=== PATIENT | male | born 1960 | race Caucasian/White ===

== ENCOUNTER 2022-01-13 06:58 | Inpatient (IN) | payer BC, MEDICARE, OTHER ==
[~2022-01-13] VITALS: Ht 170.2 cm; Wt 45.8 kg
[2022-01-13 07:31] LABS: BASOPHILS # (AUTO) 0.1 (0.0-0.1); BASOPHILS % 0.8 % (0.0-1.0); EOSINOPHILS # (AUTO) 0.2 (0.0-0.4); EOSINOPHILS % 1.8 % (0.0-6.0); HEMATOCRIT 27.4 % (38.2-49.6); HEMOGLOBIN 9.1 g/dL (14.0-18.0); LYMPHOCYTES # (AUTO) 0.8 (1.0-3.2); LYMPHOCYTES % 7.4 % (18.0-39.1); MEAN CORPUSCULAR HGB CONC 33.2 g/dL (31-35); MEAN CORPUSCULAR VOLUME 90.4 fL (81-99); MONOCYTES # (AUTO) 0.9 (0.2-0.8); MONOCYTES % 8.4 % (4.4-11.3); NEUTROPHILS # (AUTO) 8.9 (2.1-6.9); NEUTROPHILS % 81.1 % (38.7-80.0); PLATELET COUNT 377 x10e3/uL (140-360); RED BLOOD COUNT 3.03 x10e6/uL (4.3-5.7); RED CELL DISTRIBUTION WIDTH 12.4 % (11.7-14.4)
[2022-01-13 07:50] LABS: AMPHETAMINES SCREEN,URINE POSITIVE (NEGATIVE); PHENCYCLIDINE SCREEN,URINE NEGATIVE (NEGATIVE)
[2022-01-13 07:51] LABS: BENZODIAZEPINES SCREEN,URINE NEGATIVE (NEGATIVE)
[2022-01-13 07:52] LABS: ALANINE AMINOTRANSFERASE 7 IU/L (0-55); ALBUMIN/GLOBULIN RATIO 0.5 (0.8-2.0); ALKALINE PHOSPHATASE 79 IU/L (40-150); ANION GAP 19.9 mmol/L (8-16); BLOOD UREA NITROGEN 18 mg/dL (7-26); BUN/CREATININE RATIO 9 (6-25); CALCIUM 8.9 mg/dL (8.4-10.2); CARBON DIOXIDE 19 mmol/L (22-29); CHLORIDE 100 mmol/L (98-107); CREATINE KINASE 135 IU/L (30-200); CREATININE, SERUM 1.91 mg/dL (0.72-1.25); GLUCOSE 90 mg/dL (74-118); POTASSIUM 3.9 mmol/L (3.5-5.1); SODIUM 135 mmol/L (136-145)
[2022-01-13] MEDS ORDERED: IOPAMIDOL 370 MG/ML 100 ML INFUS..BTL INJ ONE (08:14)
[2022-01-13 08:33] LABS: CLARITY,URINE TURBID (CLEAR); COLOR,URINE YELLOW (YELLOW); KETONES,URINE NEGATIVE (NEGATIVE); LEUKOCYTE ESTERASE ,URINE SMALL (NEGATIVE); NITRITE,URINE NEGATIVE (NEGATIVE); PROTEIN,URINE DIPSTICK NEGATIVE (NEGATIVE); URINE UROBILINOGEN 0.2 mg/dL (0.2 - 1)
[2022-01-13 08:42] LABS: BACTERIA,URINE MANY /HPF; EPITHELIAL CELLS,URINE FEW /LPF; RBC,URINE >50 /HPF (0-5); WBC,URINE (MAN) >50 /HPF (0-5)
[2022-01-13 08:50] LABS: INR 0.97; PROTHROMBIN TIME 13.8 seconds (11.9-14.5)
[2022-01-13 08:51] LABS: PARTIAL THROMBOPLASTIN TIME 48.7 seconds (23.8-35.5)
[2022-01-13] MEDS ORDERED: Morphine 4mg INJECTION 4 MG/ML INJ IV PRN (09:00)
[2022-01-13] MEDS ORDERED: ONDANSETRON HCL INJ 2MG/ML 2ML 2 MG/ML VIAL IV PRN (09:00)
[2022-01-13] MEDS ORDERED: SODIUM CHLORIDE FLUSH 10 ML SYR INJ PRN (09:00)
[2022-01-13] MEDS ORDERED: ACETAMINOPHEN 325 MG TAB PO PRN (11:45)
[2022-01-13] MEDS ORDERED: LEVOTHYROXINE112 MCG PO (16:05)
[2022-01-13] MEDS ORDERED: VITAMIN C1000 MG PO (16:05)
[2022-01-13] MEDS ORDERED: BACLOFEN10 MG PO (16:05)
[2022-01-13] MEDS ORDERED: HYOSCYAMIN0.125 MG/1 PO (16:05)
[2022-01-13] MEDS ORDERED: SODIUM BIC (16:05)
[2022-01-13] MEDS ORDERED: LIOTHYRONINE SO5 MCG PO (16:05)
[2022-01-13] MEDS ORDERED: FLUCONAZOLE100 MG PO (16:05)
[2022-01-13] MEDS ORDERED: B-121000 MCG PO (16:05)
[2022-01-13] MEDS ORDERED: PROCARDIA XL30 MG PO (16:05)
[2022-01-13] MEDS ORDERED: FOLIC ACID0.4 MG PO (16:05)
[2022-01-13] MEDS ORDERED: PERIDEX473 M1 PO (16:05)
[2022-01-13] MEDS ORDERED: AUGMENTIN 500-1 EACH PO (16:05)
[2022-01-13] MEDS ORDERED: ULTRAM50 MG PO (16:05)
[2022-01-13] MEDS ORDERED: CARVEDILOL3.125 MG PO (16:05)
[2022-01-13] MEDS ORDERED: LASIX20 MG PO (16:05)
[2022-01-13 16:37] LABS: BODY FLUID APPEARANCE CLEAR; BODY FLUID COLOR YELLOW; BODY FLUID TYPE PLEURAL; RBC,BODY FLUID < 2000 cells/uL; WBC,BODY FLUID 255 cells/uL
[2022-01-13 16:58] LABS: CREATINE KINASE MB 15.5 ng/mL (0-5.0)
[2022-01-13] MEDS ORDERED: FUROSEMIDE INJ 10 MG/ML 2 ML VIAL IV SCH (17:00)
[2022-01-13 17:08] VITALS: BP 100/64
[2022-01-13] MEDS: BACLOFEN 10 MG TAB PO SCH (19:30)
[2022-01-13 20:16] LABS: FREE THYROXINE INDEX 1.898 (1.4-3.8); THYROID STIMULATING HORMONE 0.518 uIU/mL (0.350-4.940)
[2022-01-13 21:04] LABS: LYMPHOCYTES,BODY FLUID 3 %; MONO/MACROPHG,BODY FLUID 44 %; NEUTROPHILS,BODY FLUID 52 %; OTHER CELLS,BODY FLUID 1 %
[2022-01-13] MEDS ORDERED: SODIUM CHLORIDE 0.9% 250ML 250 ML ONE (21:41)
[2022-01-13 21:48] VITALS: BP 124/55
[2022-01-14] VITALS (50 sets, daily range): BP systolic 85–140; BP diastolic 55–105
[2022-01-14] MEDS ORDERED: ACETAMINOPHEN 325 MG TAB PO PRN (04:30)
[2022-01-14 04:40] LABS: BASOPHILS # (AUTO) 0.1 (0.0-0.1); BASOPHILS % 0.3 % (0.0-1.0); EOSINOPHILS % 0.2 % (0.0-6.0); HEMATOCRIT 27.9 % (38.2-49.6); HEMOGLOBIN 8.9 g/dL (14.0-18.0); LYMPHOCYTES # (AUTO) 0.7 (1.0-3.2); LYMPHOCYTES % 3.5 % (18.0-39.1); MEAN CORPUSCULAR HGB CONC 31.9 g/dL (31-35); MEAN CORPUSCULAR VOLUME 93.9 fL (81-99); MONOCYTES # (AUTO) 0.8 (0.2-0.8); MONOCYTES % 4.4 % (4.4-11.3); NEUTROPHILS # (AUTO) 17.4 (2.1-6.9); NEUTROPHILS % 91.1 % (38.7-80.0); PLATELET COUNT 393 x10e3/uL (140-360); RED BLOOD COUNT 2.97 x10e6/uL (4.3-5.7); RED CELL DISTRIBUTION WIDTH 12.8 % (11.7-14.4)
[2022-01-14 04:58] LABS: ALANINE AMINOTRANSFERASE 7 IU/L (0-55); ALBUMIN/GLOBULIN RATIO 0.5 (0.8-2.0); ALKALINE PHOSPHATASE 73 IU/L (40-150); ANION GAP 23.2 mmol/L (8-16); BLOOD UREA NITROGEN 20 mg/dL (7-26); BUN/CREATININE RATIO 8 (6-25); CALCIUM 8.4 mg/dL (8.4-10.2); CARBON DIOXIDE 16 mmol/L (22-29); CHLORIDE 102 mmol/L (98-107); CREATINE KINASE 98 IU/L (30-200); CREATININE, SERUM 2.55 mg/dL (0.72-1.25); GLUCOSE 65 mg/dL (74-118); POTASSIUM 4.2 mmol/L (3.5-5.1); SODIUM 137 mmol/L (136-145)
[2022-01-14 05:23] LABS: ABG PH 7.05 (7.35-7.45)
[2022-01-14 05:24] LABS: ABG HCO3 20 mmol/L (22-26); ABG PCO2 70 mmHg (35-45); ABG PO2 111 mmHg (80-105); ABG TCO2 22
[2022-01-14] MEDS ORDERED: PROPOFOL IV EMULSION 10MG/ML 100 ML IV STA (05:30)
[2022-01-14 05:58] LABS: ABG PH 7.07 (7.35-7.45)
[2022-01-14 05:59] LABS: ABG HCO3 23 mmol/L (22-26); ABG PCO2 68 mmHg (35-45); ABG PO2 80 mmHg (80-105); ABG TCO2 24
[2022-01-14] MEDS: LEVOTHYROXINE SODIUM 112 MCG TAB PO SCH (06:00)
[2022-01-14] MEDS: LEVOTHYROXINE SODIUM 25 MCG TABLET PO SCH (06:00)
[2022-01-14] MEDS ORDERED: FUROSEMIDE INJ 10 MG/ML 2 ML VIAL IV ONE (06:00)
[2022-01-14] MEDS ORDERED: NITROGLYCERIN 2% OINT 1 GM PKT TOP SCH (06:00)
[2022-01-14] MEDS ORDERED: SODIUM CHLORIDE 0.9% 1000ML 1,000 ML IV ONE (07:30)
[2022-01-14] MEDS ORDERED: Vancomycin IV 1 GM in SODIUM CHLORIDE 0.9% 250ML 250 ML IV ONE (07:30)
[2022-01-14] MEDS: BACLOFEN 10 MG TAB PO SCH ×2 (07:30→19:30)
[2022-01-14 07:35] LABS: BASOPHILS # (AUTO) 0.1 (0.0-0.1); BASOPHILS % 0.4 % (0.0-1.0); EOSINOPHILS % 0.1 % (0.0-6.0); HEMATOCRIT 27.2 % (38.2-49.6); HEMOGLOBIN 8.7 g/dL (14.0-18.0); LYMPHOCYTES # (AUTO) 0.6 (1.0-3.2); LYMPHOCYTES % 2.8 % (18.0-39.1); MEAN CORPUSCULAR HEMOGLOBIN 29.4 pg (28-32); MEAN CORPUSCULAR VOLUME 91.9 fL (81-99); MONOCYTES # (AUTO) 0.9 (0.2-0.8); MONOCYTES % 4.5 % (4.4-11.3); NEUTROPHILS # (AUTO) 18.1 (2.1-6.9); NEUTROPHILS % 91.2 % (38.7-80.0); PLATELET COUNT 412 x10e3/uL (140-360); RED BLOOD COUNT 2.96 x10e6/uL (4.3-5.7); RED CELL DISTRIBUTION WIDTH 13.1 % (11.7-14.4)
[2022-01-14] MEDS: CARVEDILOL 3.125 MG TAB PO SCH ×2 (08:00→17:00)
[2022-01-14] MEDS ORDERED: BUPIVACAINE 0.25% 30ML SDV ONE (08:08)
[2022-01-14 08:27] LABS: ALBUMIN 1.9 g/dL (3.5-5.0); ALBUMIN/GLOBULIN RATIO 0.5 (0.8-2.0); ANION GAP 26.1 mmol/L (8-16); CALCIUM 8.6 mg/dL (8.4-10.2); CREATININE, SERUM 2.63 mg/dL (0.72-1.25); POTASSIUM 4.1 mmol/L (3.5-5.1)
[2022-01-14] MEDS ORDERED: LIDOCAINE 2% /EPINEPHRINE 20 ML SDV INJ ONE (08:34)
[2022-01-14] MEDS: ASCORBIC ACID 500 MG TAB PO SCH (09:00)
[2022-01-14] MEDS ORDERED: FUROSEMIDE 20 MG TAB PO SCH (09:00)
[2022-01-14] MEDS: LIOTHYRONINE SODIUM 5 MCG TAB PO SCH (09:00)
[2022-01-14] MEDS ORDERED: PHENYLEPHRINE HCL 1% 10 MG/ML VIAL ONE (09:03)
[2022-01-14] MEDS ORDERED: DEXMEDETOMIDINE HCL 200 MCG/2 ML VIAL ONE (09:03)
[2022-01-14] MEDS ORDERED: SEVOFLURANE INHAL SOLN 250 ML PEN BTL ONE (09:03)
[2022-01-14] MEDS ORDERED: POVIDONE IODINE 0.05% 0.05 % ML PO ONE (09:03)
[2022-01-14] MEDS ORDERED: KETAMINE HCL INJ 50 MG/ML 10 ML VIAL ONE (09:40)
[2022-01-14] MEDS: DEXMEDETOMIDINE 400MCG/NS100ML 100 ML IV SCH (11:04)
[2022-01-14 11:50] LABS: ABG HCO3 17 mmol/L (22-26); ABG PCO2 42 mmHg (35-45); ABG PH 7.22 (7.35-7.45); ABG PO2 263 mmHg (80-105); ABG TCO2 18
[2022-01-14] MEDS: SODIUM BICARBONATE 8.4% SYRING 50 ML in SODIUM CHLORIDE 0.45% 1,000 ML IV SCH (15:44)
[2022-01-14 16:31] LABS: ABG HCO3 15 mmol/L (22-26); ABG PCO2 29 mmHg (35-45); ABG PH 7.31 (7.35-7.45); ABG PO2 96 mmHg (80-105); ABG TCO2 16
[2022-01-14 18:34] LABS: ALANINE AMINOTRANSFERASE 6 IU/L (0-55); ALBUMIN 1.6 g/dL (3.5-5.0); ALBUMIN/GLOBULIN RATIO 0.5 (0.8-2.0); ALKALINE PHOSPHATASE 61 IU/L (40-150); ANION GAP 23.7 mmol/L (8-16); BLOOD UREA NITROGEN 21 mg/dL (7-26); BUN/CREATININE RATIO 8 (6-25); CALCIUM 7.8 mg/dL (8.4-10.2); CARBON DIOXIDE 13 mmol/L (22-29); CHLORIDE 106 mmol/L (98-107); CREATININE, SERUM 2.72 mg/dL (0.72-1.25); POTASSIUM 3.7 mmol/L (3.5-5.1); SODIUM 139 mmol/L (136-145)
[2022-01-14 18:39] LABS: GLUCOSE 56 mg/dL (74-118)
[2022-01-14 19:12] LABS: CREATINE KINASE MB 8.5 ng/mL (0-5.0)
[2022-01-14] MEDS ORDERED: SODIUM BICARBONATE 8.4% 50 ML in DEXTROSE 5%/0.45% SOD CHL 1,000 ML IV ONE (19:30)
[2022-01-15] VITALS (23 sets, daily range): BP systolic 88–142; BP diastolic 39–85
[2022-01-15] MEDS: SODIUM BICARBONATE 8.4% SYRING 50 ML in SODIUM CHLORIDE 0.45% 1,000 ML IV SCH (03:50)
[2022-01-15] MEDS: DEXMEDETOMIDINE 400MCG/NS100ML 100 ML IV SCH (05:25)
[2022-01-15] MEDS: LEVOTHYROXINE SODIUM 25 MCG TABLET PO SCH (05:44)
[2022-01-15] MEDS: LEVOTHYROXINE SODIUM 112 MCG TAB PO SCH (05:44)
[2022-01-15] MEDS: BACLOFEN 10 MG TAB PO SCH ×2 (07:30→19:30)
[2022-01-15] MEDS: CARVEDILOL 3.125 MG TAB PO SCH ×2 (07:59→17:00)
[2022-01-15 08:38] LABS: BASOPHILS # (AUTO) 0.1 (0.0-0.1); BASOPHILS % 0.4 % (0.0-1.0); EOSINOPHILS % 0.3 % (0.0-6.0); HEMATOCRIT 25.1 % (38.2-49.6); HEMOGLOBIN 8.4 g/dL (14.0-18.0); LYMPHOCYTES # (AUTO) 0.7 (1.0-3.2); LYMPHOCYTES % 5.6 % (18.0-39.1); MEAN CORPUSCULAR HEMOGLOBIN 29.2 pg (28-32); MEAN CORPUSCULAR HGB CONC 33.5 g/dL (31-35); MEAN CORPUSCULAR VOLUME 87.2 fL (81-99); MONOCYTES % 7.2 % (4.4-11.3); NEUTROPHILS # (AUTO) 11.4 (2.1-6.9); NEUTROPHILS % 86.2 % (38.7-80.0); PLATELET COUNT 411 x10e3/uL (140-360); RED BLOOD COUNT 2.88 x10e6/uL (4.3-5.7); RED CELL DISTRIBUTION WIDTH 12.5 % (11.7-14.4)
[2022-01-15] MEDS: ASCORBIC ACID 500 MG TAB PO SCH (09:00)
[2022-01-15] MEDS: LIOTHYRONINE SODIUM 5 MCG TAB PO SCH (09:00)
[2022-01-15 09:01] LABS: ALBUMIN 1.6 g/dL (3.5-5.0); ALBUMIN/GLOBULIN RATIO 0.4 (0.8-2.0); ANION GAP 23.8 mmol/L (8-16); CALCIUM 7.7 mg/dL (8.4-10.2); CREATININE, SERUM 2.69 mg/dL (0.72-1.25)
[2022-01-15 09:04] LABS: POTASSIUM 2.8 mmol/L (3.5-5.1)
[2022-01-15] MEDS ORDERED: FUROSEMIDE INJ 10 MG/ML 4 ML VIAL IV ONE (10:00)
[2022-01-15] MEDS ORDERED: POTASSIUM CHLORIDE 20MEQ/100ML 100 ML IV ONE ×2 (10:00→18:00)
[2022-01-15] MEDS: SODIUM BICARBONATE 8.4% 150 ML in DEXTROSE 5% 1,000 ML IV SCH (10:11)
[2022-01-15 11:17] LABS: ABG PH 7.43 (7.35-7.45)
[2022-01-15 11:18] LABS: ABG HCO3 18 mmol/L (22-26); ABG PCO2 28 mmHg (35-45); ABG PO2 63 mmHg (80-105); ABG TCO2 19
[2022-01-15] MEDS: FLUCONAZOLE 100 MG/NS 50 ML 50 ML IV SCH (15:08)
[2022-01-16] VITALS (22 sets, daily range): BP systolic 93–185; BP diastolic 48–81
[2022-01-16] MEDS: SODIUM BICARBONATE 8.4% 150 ML in DEXTROSE 5% 1,000 ML IV SCH ×2 (01:20→06:48)
[2022-01-16] MEDS: DEXMEDETOMIDINE 400MCG/NS100ML 100 ML IV SCH (02:20)
[2022-01-16 04:59] LABS: BASOPHILS # (AUTO) 0.1 (0.0-0.1); BASOPHILS % 0.7 % (0.0-1.0); EOSINOPHILS # (AUTO) 0.1 (0.0-0.4); EOSINOPHILS % 0.8 % (0.0-6.0); HEMATOCRIT 25.8 % (38.2-49.6); LYMPHOCYTES # (AUTO) 0.8 (1.0-3.2); MEAN CORPUSCULAR HEMOGLOBIN 29.7 pg (28-32); MEAN CORPUSCULAR HGB CONC 34.9 g/dL (31-35); MEAN CORPUSCULAR VOLUME 85.1 fL (81-99); MONOCYTES # (AUTO) 0.9 (0.2-0.8); MONOCYTES % 7.1 % (4.4-11.3); NEUTROPHILS % 84.9 % (38.7-80.0); PLATELET COUNT 412 x10e3/uL (140-360); RED BLOOD COUNT 3.03 x10e6/uL (4.3-5.7); RED CELL DISTRIBUTION WIDTH 12.9 % (11.7-14.4)
[2022-01-16 05:17] LABS: ALBUMIN 1.5 g/dL (3.5-5.0); ALBUMIN/GLOBULIN RATIO 0.4 (0.8-2.0); ANION GAP 16.8 mmol/L (8-16); CALCIUM 7.9 mg/dL (8.4-10.2); CREATININE, SERUM 2.3 mg/dL (0.72-1.25)
[2022-01-16 05:18] LABS: POTASSIUM 2.8 mmol/L (3.5-5.1)
[2022-01-16] MEDS: LEVOTHYROXINE SODIUM 112 MCG TAB PO SCH (06:00)
[2022-01-16] MEDS: LEVOTHYROXINE SODIUM 25 MCG TABLET PO SCH (06:00)
[2022-01-16] MEDS ORDERED: DEXTROSE 5% 1,000 ML IV ONE (06:49)
[2022-01-16] MEDS ORDERED: SODIUM BICARBONATE 8.4% SYRING 150 ML ONE (06:49)
[2022-01-16] MEDS: BACLOFEN 10 MG TAB PO SCH ×2 (07:30→19:30)
[2022-01-16] MEDS: CARVEDILOL 3.125 MG TAB PO SCH ×2 (08:00→17:00)
[2022-01-16] MEDS: POTASSIUM CHLORIDE 20MEQ/100ML 100 ML IV SCH ×2 (08:04→10:00)
[2022-01-16] MEDS: LIOTHYRONINE SODIUM 5 MCG TAB PO SCH (09:00)
[2022-01-16] MEDS: ASCORBIC ACID 500 MG TAB PO SCH (09:00)
[2022-01-16] MEDS: POTASSIUM CHL IV SCH (10:57)
[2022-01-16] MEDS: DEXTROSE IV SCH (10:57)
[2022-01-16] MEDS: SOD CHL IV SCH (10:57)
[2022-01-16] MEDS: LEVOTHYROXINE SODIUM 100 MCG/VIAL IV SCH (11:01)
[2022-01-16] MEDS: FLUCONAZOLE 100 MG/NS 50 ML 50 ML IV SCH (14:27)
[2022-01-17] VITALS (19 sets, daily range): BP systolic 98–198; BP diastolic 21–105
[2022-01-17] MEDS: SOD CHL IV SCH ×2 (00:38→13:56)
[2022-01-17] MEDS: DEXTROSE IV SCH ×2 (00:38→13:56)
[2022-01-17] MEDS: POTASSIUM CHL IV SCH ×2 (00:38→13:56)
[2022-01-17 06:21] LABS: BASOPHILS # (AUTO) 0.1 (0.0-0.1); BASOPHILS % 0.4 % (0.0-1.0); EOSINOPHILS # (AUTO) 0.1 (0.0-0.4); HEMATOCRIT 31.1 % (38.2-49.6); HEMOGLOBIN 10.4 g/dL (14.0-18.0); LYMPHOCYTES % 7.8 % (18.0-39.1); MEAN CORPUSCULAR HGB CONC 33.4 g/dL (31-35); MEAN CORPUSCULAR VOLUME 89.6 fL (81-99); MONOCYTES # (AUTO) 1.1 (0.2-0.8); MONOCYTES % 8.9 % (4.4-11.3); NEUTROPHILS # (AUTO) 10.3 (2.1-6.9); NEUTROPHILS % 81.2 % (38.7-80.0); PLATELET COUNT 434 x10e3/uL (140-360); RED BLOOD COUNT 3.47 x10e6/uL (4.3-5.7); RED CELL DISTRIBUTION WIDTH 12.7 % (11.7-14.4)
[2022-01-17] MEDS: LEVOTHYROXINE SODIUM 100 MCG/VIAL IV SCH (06:21)
[2022-01-17 07:13] LABS: ALBUMIN 1.5 g/dL (3.5-5.0); ALBUMIN/GLOBULIN RATIO 0.4 (0.8-2.0); ANION GAP 18.7 mmol/L (8-16); CALCIUM 7.7 mg/dL (8.4-10.2); CREATININE, SERUM 1.71 mg/dL (0.72-1.25)
[2022-01-17 07:16] LABS: POTASSIUM 2.7 mmol/L (3.5-5.1)
[2022-01-17] MEDS: BACLOFEN 10 MG TAB PO SCH ×2 (07:30→19:22)
[2022-01-17] MEDS: CARVEDILOL 3.125 MG TAB PO SCH ×2 (08:00→13:59)
[2022-01-17] MEDS: LIOTHYRONINE SODIUM 5 MCG TAB PO SCH (08:05)
[2022-01-17] MEDS: ASCORBIC ACID 500 MG TAB PO SCH (08:05)
[2022-01-17] MEDS: POTASSIUM CHLORIDE 20MEQ/100ML 100 ML IV SCH ×2 (08:17→10:42)
[2022-01-17] MEDS: DEXMEDETOMIDINE 400MCG/NS100ML 100 ML IV SCH (08:21)
[2022-01-17 13:22] LABS: ABG HCO3 28 mmol/L (22-26); ABG PCO2 34 mmHg (35-45); ABG PH 7.53 (7.35-7.45); ABG PO2 69 mmHg (80-105); ABG TCO2 29
[2022-01-17] MEDS: FLUCONAZOLE 100 MG/NS 50 ML 50 ML IV SCH (13:56)
[2022-01-17] MEDS ORDERED: POTASSIUM CHLORIDE 20MEQ/100ML 100 ML IV ONE (15:30)
[2022-01-17] MEDS: HYDRALAZINE HCL 20 MG/ML VIAL IV PRN (19:21)
[2022-01-18] VITALS (18 sets, daily range): BP systolic 140–191; BP diastolic 68–101
[2022-01-18] MEDS: SOD CHL IV SCH (02:45)
[2022-01-18] MEDS: POTASSIUM CHL IV SCH (02:45)
[2022-01-18] MEDS: DEXTROSE IV SCH (02:45)
[2022-01-18] MEDS: HYDRALAZINE HCL 20 MG/ML VIAL IV PRN ×4 (03:21→23:28)
[2022-01-18] MEDS: LEVOTHYROXINE SODIUM 100 MCG/VIAL IV SCH (03:22)
[2022-01-18 07:11] LABS: BASOPHILS # (AUTO) 0.1 (0.0-0.1); BASOPHILS % 0.7 % (0.0-1.0); EOSINOPHILS # (AUTO) 0.2 (0.0-0.4); EOSINOPHILS % 1.4 % (0.0-6.0); HEMATOCRIT 26.8 % (38.2-49.6); HEMOGLOBIN 9.2 g/dL (14.0-18.0); LYMPHOCYTES % 9.3 % (18.0-39.1); MEAN CORPUSCULAR HGB CONC 34.3 g/dL (31-35); MEAN CORPUSCULAR VOLUME 87.3 fL (81-99); MONOCYTES % 9.5 % (4.4-11.3); NEUTROPHILS # (AUTO) 8.3 (2.1-6.9); NEUTROPHILS % 78.5 % (38.7-80.0); PLATELET COUNT 422 x10e3/uL (140-360); RED BLOOD COUNT 3.07 x10e6/uL (4.3-5.7); RED CELL DISTRIBUTION WIDTH 13.1 % (11.7-14.4)
[2022-01-18] MEDS: BACLOFEN 10 MG TAB PO SCH ×2 (07:30→19:30)
[2022-01-18 07:37] LABS: ALBUMIN 1.5 g/dL (3.5-5.0); ALBUMIN/GLOBULIN RATIO 0.4 (0.8-2.0); CALCIUM 7.5 mg/dL (8.4-10.2); CREATININE, SERUM 1.56 mg/dL (0.72-1.25)
[2022-01-18] MEDS: CARVEDILOL 3.125 MG TAB PO SCH ×2 (08:00→16:55)
[2022-01-18] MEDS: LIOTHYRONINE SODIUM 5 MCG TAB PO SCH (08:03)
[2022-01-18] MEDS: ASCORBIC ACID 500 MG TAB PO SCH (08:04)
[2022-01-18] MEDS: BALSAM PERU/CASTOR OIL 60 GM OINT...G. TP SCH (08:04)
[2022-01-18] MEDS: POTASSIUM CHLORIDE 20MEQ/100ML 100 ML IV SCH ×2 (09:31→15:22)
[2022-01-18] MEDS: FLUCONAZOLE 100 MG/NS 50 ML 50 ML IV SCH (14:37)
[2022-01-18] MEDS ORDERED: POTASSIUM CHLORIDE 20MEQ/100ML 100 ML IV ONE (15:00)
[2022-01-19] VITALS (36 sets, daily range): BP systolic 131–191; BP diastolic 65–99
[2022-01-19] MEDS: SOD CHL IV SCH ×2 (04:14→04:15)
[2022-01-19] MEDS: POTASSIUM CHL IV SCH ×2 (04:14→04:15)
[2022-01-19] MEDS: HYDRALAZINE HCL 20 MG/ML VIAL IV PRN ×3 (04:14→17:12)
[2022-01-19] MEDS: DEXTROSE IV SCH ×2 (04:14→04:15)
[2022-01-19] MEDS: LEVOTHYROXINE SODIUM 100 MCG/VIAL IV SCH (04:16)
[2022-01-19 07:00] LABS: BASOPHILS # (AUTO) 0.1 (0.0-0.1); BASOPHILS % 0.8 % (0.0-1.0); EOSINOPHILS # (AUTO) 0.3 (0.0-0.4); EOSINOPHILS % 3.5 % (0.0-6.0); HEMATOCRIT 27.1 % (38.2-49.6); HEMOGLOBIN 8.7 g/dL (14.0-18.0); LYMPHOCYTES % 11.2 % (18.0-39.1); MEAN CORPUSCULAR HEMOGLOBIN 29.8 pg (28-32); MEAN CORPUSCULAR HGB CONC 32.1 g/dL (31-35); MEAN CORPUSCULAR VOLUME 92.8 fL (81-99); MONOCYTES # (AUTO) 0.9 (0.2-0.8); MONOCYTES % 10.8 % (4.4-11.3); NEUTROPHILS # (AUTO) 6.3 (2.1-6.9); NEUTROPHILS % 73.2 % (38.7-80.0); PLATELET COUNT 438 x10e3/uL (140-360); RED BLOOD COUNT 2.92 x10e6/uL (4.3-5.7); RED CELL DISTRIBUTION WIDTH 13.1 % (11.7-14.4)
[2022-01-19 07:21] LABS: ALANINE AMINOTRANSFERASE 6 IU/L (0-55); ALBUMIN 1.5 g/dL (3.5-5.0); ALBUMIN/GLOBULIN RATIO 0.4 (0.8-2.0); ALKALINE PHOSPHATASE 61 IU/L (40-150); ANION GAP 14.7 mmol/L (8-16); BLOOD UREA NITROGEN 10 mg/dL (7-26); BUN/CREATININE RATIO 7 (6-25); CALCIUM 8.4 mg/dL (8.4-10.2); CARBON DIOXIDE 21 mmol/L (22-29); CHLORIDE 108 mmol/L (98-107); CREATININE, SERUM 1.43 mg/dL (0.72-1.25); GLUCOSE 90 mg/dL (74-118); POTASSIUM 3.7 mmol/L (3.5-5.1); SODIUM 140 mmol/L (136-145)
[2022-01-19] MEDS: BACLOFEN 10 MG TAB PO SCH ×2 (07:30→19:30)
[2022-01-19] MEDS: CARVEDILOL 3.125 MG TAB PO SCH (08:00)
[2022-01-19] MEDS: ASCORBIC ACID 500 MG TAB PO SCH (08:06)
[2022-01-19] MEDS: D5.45%NS/KCL 20MEQ 1,000 ML IV SCH (08:06)
[2022-01-19] MEDS: BALSAM PERU/CASTOR OIL 60 GM OINT...G. TP SCH (08:06)
[2022-01-19] MEDS: LIOTHYRONINE SODIUM 5 MCG TAB PO SCH (08:06)
[2022-01-19] MEDS ORDERED: PROPOFOL IV EMULSION 10 MG/ML 20 ML VIAL ONE (12:57)
[2022-01-19] MEDS ORDERED: LIDOCAINE HCL 2% LOCAL INJ 5 ML SDV VIAL INJ ONE (12:57)
[2022-01-19] MEDS: CARVEDILOL 12.5 MG TAB PO SCH (16:01)
[2022-01-19] MEDS: NICARDIPINE 20MG/200ML PREMIX 200 ML IV PRN (20:22)
[2022-01-20] VITALS (57 sets, daily range): BP systolic 135–189; BP diastolic 76–110
[2022-01-20] MEDS: D5.45%NS/KCL 20MEQ 1,000 ML IV SCH ×3 (00:03→17:58)
[2022-01-20] MEDS: LEVOTHYROXINE SODIUM 100 MCG/VIAL IV SCH (06:24)
[2022-01-20] MEDS: BACLOFEN 10 MG TAB PO SCH ×2 (07:30→20:16)
[2022-01-20] MEDS: CARVEDILOL 12.5 MG TAB PO SCH ×2 (07:33→17:43)
[2022-01-20] MEDS: ASCORBIC ACID 500 MG TAB PO SCH (08:00)
[2022-01-20] MEDS: BALSAM PERU/CASTOR OIL 60 GM OINT...G. TP SCH (08:00)
[2022-01-20] MEDS: LIOTHYRONINE SODIUM 5 MCG TAB PO SCH (08:00)
[2022-01-20 08:07] LABS: BASOPHILS # (AUTO) 0.1 (0.0-0.1); BASOPHILS % 0.9 % (0.0-1.0); EOSINOPHILS # (AUTO) 0.3 (0.0-0.4); EOSINOPHILS % 3.8 % (0.0-6.0); HEMATOCRIT 27.4 % (38.2-49.6); LYMPHOCYTES # (AUTO) 0.8 (1.0-3.2); LYMPHOCYTES % 8.9 % (18.0-39.1); MEAN CORPUSCULAR HEMOGLOBIN 29.7 pg (28-32); MEAN CORPUSCULAR HGB CONC 32.8 g/dL (31-35); MEAN CORPUSCULAR VOLUME 90.4 fL (81-99); MONOCYTES # (AUTO) 0.7 (0.2-0.8); NEUTROPHILS % 77.8 % (38.7-80.0); PLATELET COUNT 455 x10e3/uL (140-360); RED BLOOD COUNT 3.03 x10e6/uL (4.3-5.7); RED CELL DISTRIBUTION WIDTH 13.2 % (11.7-14.4)
[2022-01-20 08:33] LABS: ALANINE AMINOTRANSFERASE 7 IU/L (0-55); ALBUMIN 1.6 g/dL (3.5-5.0); ALBUMIN/GLOBULIN RATIO 0.4 (0.8-2.0); ALKALINE PHOSPHATASE 69 IU/L (40-150); ANION GAP 12.8 mmol/L (8-16); BLOOD UREA NITROGEN 8 mg/dL (7-26); BUN/CREATININE RATIO 6 (6-25); CALCIUM 8.4 mg/dL (8.4-10.2); CARBON DIOXIDE 21 mmol/L (22-29); CHLORIDE 110 mmol/L (98-107); CREATININE, SERUM 1.34 mg/dL (0.72-1.25); GLUCOSE 102 mg/dL (74-118); POTASSIUM 3.8 mmol/L (3.5-5.1); SODIUM 140 mmol/L (136-145)
[2022-01-20] MEDS: FLUTICASONE PROPIONATE NASAL SPRAY NS SCH (11:25)
[2022-01-20] MEDS: NICARDIPINE 20MG/200ML PREMIX 200 ML IV PRN (12:55)
[2022-01-20] MEDS ORDERED: CARVEDILOL 12.5 MG TAB PO SCH (17:00)
[2022-01-21] VITALS (57 sets, daily range): BP systolic 98–197; BP diastolic 61–152
[2022-01-21 05:10] LABS: ANION GAP 13.2 mmol/L (8-16); CALCIUM 8.2 mg/dL (8.4-10.2); CREATININE, SERUM 1.22 mg/dL (0.72-1.25); POTASSIUM 4.2 mmol/L (3.5-5.1)
[2022-01-21] MEDS: LEVOTHYROXINE SODIUM 100 MCG/VIAL IV SCH (05:15)
[2022-01-21] MEDS: BACLOFEN 10 MG TAB PO SCH ×2 (07:28→20:29)
[2022-01-21] MEDS: FLUTICASONE PROPIONATE NASAL SPRAY NS SCH (08:53)
[2022-01-21] MEDS: ASCORBIC ACID 500 MG TAB PO SCH (08:54)
[2022-01-21] MEDS: CARVEDILOL 12.5 MG TAB PO SCH ×2 (08:54→17:00)
[2022-01-21] MEDS: LIOTHYRONINE SODIUM 5 MCG TAB PO SCH (08:54)
[2022-01-21] MEDS: BALSAM PERU/CASTOR OIL 60 GM OINT...G. TP SCH (08:54)
[2022-01-21] MEDS: D5.45%NS/KCL 20MEQ 1,000 ML IV SCH ×2 (13:20→20:29)
[2022-01-21] MEDS: NIFEDIPINE CR 30 MG TAB PO SCH (15:37)
[2022-01-22] VITALS (47 sets, daily range): BP systolic 90–165; BP diastolic 58–147
[2022-01-22] MEDS: LEVOTHYROXINE SODIUM 100 MCG/VIAL IV SCH (05:46)
[2022-01-22 06:31] LABS: BASOPHILS # (AUTO) 0.1 (0.0-0.1); BASOPHILS % 0.6 % (0.0-1.0); EOSINOPHILS # (AUTO) 0.1 (0.0-0.4); EOSINOPHILS % 1.1 % (0.0-6.0); HEMATOCRIT 23.3 % (38.2-49.6); HEMOGLOBIN 7.6 g/dL (14.0-18.0); LYMPHOCYTES # (AUTO) 0.9 (1.0-3.2); LYMPHOCYTES % 7.8 % (18.0-39.1); MEAN CORPUSCULAR HEMOGLOBIN 29.8 pg (28-32); MEAN CORPUSCULAR HGB CONC 32.6 g/dL (31-35); MEAN CORPUSCULAR VOLUME 91.4 fL (81-99); MONOCYTES # (AUTO) 0.9 (0.2-0.8); NEUTROPHILS # (AUTO) 9.3 (2.1-6.9); NEUTROPHILS % 82.1 % (38.7-80.0); PLATELET COUNT 491 x10e3/uL (140-360); RED BLOOD COUNT 2.55 x10e6/uL (4.3-5.7); RED CELL DISTRIBUTION WIDTH 12.9 % (11.7-14.4)
[2022-01-22 06:49] LABS: ALANINE AMINOTRANSFERASE 9 IU/L (0-55); ALBUMIN 1.6 g/dL (3.5-5.0); ALBUMIN/GLOBULIN RATIO 0.4 (0.8-2.0); ALKALINE PHOSPHATASE 61 IU/L (40-150); ANION GAP 13.6 mmol/L (8-16); BLOOD UREA NITROGEN 30 mg/dL (7-26); BUN/CREATININE RATIO 20 (6-25); CALCIUM 8.5 mg/dL (8.4-10.2); CARBON DIOXIDE 21 mmol/L (22-29); CHLORIDE 109 mmol/L (98-107); CREATININE, SERUM 1.51 mg/dL (0.72-1.25); GLUCOSE 122 mg/dL (74-118); POTASSIUM 4.6 mmol/L (3.5-5.1); SODIUM 139 mmol/L (136-145)
[2022-01-22] MEDS: NIFEDIPINE CR 30 MG TAB PO SCH (09:00)
[2022-01-22] MEDS: CARVEDILOL 12.5 MG TAB PO SCH ×2 (09:00→17:28)
[2022-01-22] MEDS: BACLOFEN 10 MG TAB PO SCH (09:01)
[2022-01-22] MEDS: LIOTHYRONINE SODIUM 5 MCG TAB PO SCH (09:01)
[2022-01-22] MEDS: ASCORBIC ACID 500 MG TAB PO SCH (09:02)
[2022-01-22] MEDS: FLUTICASONE PROPIONATE NASAL SPRAY NS SCH (09:04)
[2022-01-22] MEDS: BALSAM PERU/CASTOR OIL 60 GM OINT...G. TP SCH (09:04)
[2022-01-22] MEDS: FUROSEMIDE 20 MG TAB PO SCH (09:57)
[2022-01-22 17:29] LABS: HEMOGLOBIN 6.2 g/dL (14.0-18.0)
[2022-01-22 17:30] LABS: HEMATOCRIT 19.4 % (38.2-49.6)
[2022-01-22] MEDS ORDERED: SODIUM CHLORIDE 0.9% 250ML 250 ML IV ONE (17:45)
[2022-01-22 18:37] LABS: LACTATE DEHYDROGENASE 257 IU/L (125-220)
[2022-01-22 20:23] LABS: INR 1.24; PROTHROMBIN TIME 16.7 seconds (11.9-14.5)
[2022-01-22 20:24] LABS: PARTIAL THROMBOPLASTIN TIME 40.6 seconds (23.8-35.5)
[2022-01-22] MEDS ORDERED: SODIUM CHLORIDE 0.9% 250ML 250 ML ONE (23:43)
[2022-01-23] VITALS (55 sets, daily range): BP systolic 122–190; BP diastolic 66–108
[2022-01-23 01:08] LABS: FERRITIN 563.8 ng/mL (21.81-274.66)
[2022-01-23] MEDS ORDERED: SODIUM CHLORIDE 0.9% 250ML 250 ML ONE ×2 (02:31→23:38)
[2022-01-23] MEDS: HYDRALAZINE HCL 20 MG/ML VIAL IV PRN (05:07)
[2022-01-23] MEDS: LEVOTHYROXINE SODIUM 100 MCG/VIAL IV SCH (06:09)
[2022-01-23 06:49] LABS: BASOPHILS # (AUTO) 0.1 (0.0-0.1); BASOPHILS % 0.5 % (0.0-1.0); EOSINOPHILS # (AUTO) 0.1 (0.0-0.4); EOSINOPHILS % 0.9 % (0.0-6.0); HEMOGLOBIN 9.4 g/dL (14.0-18.0); LYMPHOCYTES # (AUTO) 0.8 (1.0-3.2); MEAN CORPUSCULAR HEMOGLOBIN 29.5 pg (28-32); MEAN CORPUSCULAR HGB CONC 34.8 g/dL (31-35); MEAN CORPUSCULAR VOLUME 84.6 fL (81-99); MONOCYTES # (AUTO) 0.9 (0.2-0.8); MONOCYTES % 8.1 % (4.4-11.3); NEUTROPHILS # (AUTO) 9.6 (2.1-6.9); NEUTROPHILS % 82.6 % (38.7-80.0); PLATELET COUNT 404 x10e3/uL (140-360); RED BLOOD COUNT 3.19 x10e6/uL (4.3-5.7); RED CELL DISTRIBUTION WIDTH 13.7 % (11.7-14.4)
[2022-01-23 07:15] LABS: ALBUMIN 1.9 g/dL (3.5-5.0); ALBUMIN/GLOBULIN RATIO 0.5 (0.8-2.0); ANION GAP 16.5 mmol/L (8-16); CALCIUM 8.4 mg/dL (8.4-10.2); CREATININE, SERUM 1.47 mg/dL (0.72-1.25); POTASSIUM 3.5 mmol/L (3.5-5.1)
[2022-01-23] MEDS ORDERED: FUROSEMIDE INJ 10 MG/ML 2 ML VIAL IV ONE (07:45)
[2022-01-23] MEDS: ASCORBIC ACID 500 MG TAB PO SCH (08:09)
[2022-01-23] MEDS: CARVEDILOL 12.5 MG TAB PO SCH ×2 (08:09→16:39)
[2022-01-23] MEDS: LIOTHYRONINE SODIUM 5 MCG TAB PO SCH (08:09)
[2022-01-23] MEDS: FUROSEMIDE 20 MG TAB PO SCH (09:00)
[2022-01-23] MEDS: FLUTICASONE PROPIONATE NASAL SPRAY NS SCH (09:14)
[2022-01-23] MEDS: BALSAM PERU/CASTOR OIL 60 GM OINT...G. TP SCH (09:15)
[2022-01-23] MEDS ORDERED: POTASSIUM CHLORIDE 20MEQ/100ML 100 ML IV ONE (09:30)
[2022-01-23 10:27] LABS: HEMATOCRIT 25.9 % (38.2-49.6); HEMOGLOBIN 8.7 g/dL (14.0-18.0)
[2022-01-23 15:59] LABS: INR 1.05; PROTHROMBIN TIME 14.6 seconds (11.9-14.5)
[2022-01-23 16:00] LABS: PARTIAL THROMBOPLASTIN TIME 36.6 seconds (23.8-35.5)
[2022-01-23 16:12] LABS: HEMATOCRIT 26.3 % (38.2-49.6); HEMOGLOBIN 8.7 g/dL (14.0-18.0)
[2022-01-24] VITALS (45 sets, daily range): BP systolic 105–191; BP diastolic 64–108
[2022-01-24] MEDS: HYDRALAZINE HCL 20 MG/ML VIAL IV PRN ×4 (02:06→20:24)
[2022-01-24 04:59] LABS: BASOPHILS # (AUTO) 0.1 (0.0-0.1); BASOPHILS % 0.8 % (0.0-1.0); EOSINOPHILS # (AUTO) 0.2 (0.0-0.4); HEMATOCRIT 23.4 % (38.2-49.6); HEMOGLOBIN 8.1 g/dL (14.0-18.0); LYMPHOCYTES # (AUTO) 0.9 (1.0-3.2); LYMPHOCYTES % 9.4 % (18.0-39.1); MEAN CORPUSCULAR HEMOGLOBIN 29.1 pg (28-32); MEAN CORPUSCULAR HGB CONC 34.6 g/dL (31-35); MEAN CORPUSCULAR VOLUME 84.2 fL (81-99); MONOCYTES % 10.3 % (4.4-11.3); NEUTROPHILS # (AUTO) 7.6 (2.1-6.9); NEUTROPHILS % 76.8 % (38.7-80.0); PLATELET COUNT 411 x10e3/uL (140-360); RED BLOOD COUNT 2.78 x10e6/uL (4.3-5.7); RED CELL DISTRIBUTION WIDTH 14.2 % (11.7-14.4)
[2022-01-24 05:20] LABS: ANION GAP 17.2 mmol/L (8-16); CALCIUM 8.5 mg/dL (8.4-10.2); CREATININE, SERUM 1.59 mg/dL (0.72-1.25); MAGNESIUM 1.8 MG/DL (1.3-2.1); PHOSPHORUS 3.1 MG/DL (2.3-4.7); POTASSIUM 3.2 mmol/L (3.5-5.1)
[2022-01-24] MEDS: LEVOTHYROXINE SODIUM 100 MCG/VIAL IV SCH (05:26)
[2022-01-24] MEDS: SUCRALFATE 1 GM/10 ML SUSP NG SCH ×4 (07:39→20:57)
[2022-01-24] MEDS: FUROSEMIDE 20 MG TAB PO SCH (08:53)
[2022-01-24] MEDS: ASCORBIC ACID 500 MG TAB PO SCH (08:53)
[2022-01-24] MEDS: LIOTHYRONINE SODIUM 5 MCG TAB PO SCH (08:54)
[2022-01-24] MEDS: IRON SUCROSE 100 MG in SODIUM CHLORIDE 0.9% 100 ML IV SCH (08:54)
[2022-01-24] MEDS: CARVEDILOL 12.5 MG TAB PO SCH ×2 (08:54→16:55)
[2022-01-24] MEDS: FLUTICASONE PROPIONATE NASAL SPRAY NS SCH (09:48)
[2022-01-24] MEDS: BALSAM PERU/CASTOR OIL 60 GM OINT...G. TP SCH (09:48)
[2022-01-24] MEDS ORDERED: KCL 20 MEQ PACKET/ ORAL SOLN NG ONE (10:00)
[2022-01-24] MEDS ORDERED: MEROPENEM 1 GM in SODIUM CHLORIDE 0.9% 100 ML IV SCH (10:30)
[2022-01-24 12:54] LABS: ABG HCO3 20 mmol/L (22-26); ABG PCO2 28 mmHg (35-45); ABG PH 7.46 (7.35-7.45); ABG PO2 94 mmHg (80-105); ABG TCO2 21
[2022-01-24 15:19] LABS: BODY FLUID TYPE PLEURAL
[2022-01-24 15:20] LABS: BODY FLUID APPEARANCE CLOUDY; BODY FLUID COLOR STRAW
[2022-01-24 17:04] LABS: WBC,BODY FLUID 398 cells/uL
[2022-01-24 17:06] LABS: RBC,BODY FLUID 3000 cells/uL
[2022-01-24 18:08] LABS: LYMPHOCYTES,BODY FLUID 1 %; MONO/MACROPHG,BODY FLUID 35 %; NEUTROPHILS,BODY FLUID 56 %; OTHER CELLS,BODY FLUID 8 %
[2022-01-25] VITALS (24 sets, daily range): BP systolic 133–206; BP diastolic 69–174
[2022-01-25 05:04] LABS: ANION GAP 18.3 mmol/L (8-16); CALCIUM 8.6 mg/dL (8.4-10.2); CREATININE, SERUM 1.66 mg/dL (0.72-1.25); POTASSIUM 3.3 mmol/L (3.5-5.1)
[2022-01-25] MEDS: LEVOTHYROXINE SODIUM 100 MCG/VIAL IV SCH (05:36)
[2022-01-25 07:47] LABS: BASOPHILS # (AUTO) 0.1 (0.0-0.1); BASOPHILS % 0.9 % (0.0-1.0); EOSINOPHILS # (AUTO) 0.2 (0.0-0.4); EOSINOPHILS % 1.8 % (0.0-6.0); HEMATOCRIT 27.1 % (38.2-49.6); HEMOGLOBIN 8.6 g/dL (14.0-18.0); LYMPHOCYTES # (AUTO) 0.6 (1.0-3.2); MEAN CORPUSCULAR HEMOGLOBIN 29.2 pg (28-32); MEAN CORPUSCULAR HGB CONC 31.7 g/dL (31-35); MEAN CORPUSCULAR VOLUME 91.9 fL (81-99); MONOCYTES # (AUTO) 1.1 (0.2-0.8); MONOCYTES % 10.8 % (4.4-11.3); NEUTROPHILS # (AUTO) 8.1 (2.1-6.9); PLATELET COUNT 466 x10e3/uL (140-360); RED BLOOD COUNT 2.95 x10e6/uL (4.3-5.7); RED CELL DISTRIBUTION WIDTH 14.3 % (11.7-14.4)
[2022-01-25] MEDS: SUCRALFATE 1 GM/10 ML SUSP NG SCH ×4 (07:50→20:23)
[2022-01-25] MEDS: ASCORBIC ACID 500 MG TAB PO SCH (08:34)
[2022-01-25] MEDS: LIOTHYRONINE SODIUM 5 MCG TAB PO SCH (08:35)
[2022-01-25] MEDS: CARVEDILOL 12.5 MG TAB PO SCH ×2 (08:35→16:50)
[2022-01-25] MEDS: FLUTICASONE PROPIONATE NASAL SPRAY NS SCH (08:36)
[2022-01-25] MEDS: BALSAM PERU/CASTOR OIL 60 GM OINT...G. TP SCH (08:36)
[2022-01-25] MEDS: IRON SUCROSE 100 MG in SODIUM CHLORIDE 0.9% 100 ML IV SCH (08:37)
[2022-01-25] MEDS ORDERED: POTASSIUM BICARBONATE/CIT AC 20 MEQ TABLET.EFF PO ONE (12:00)
[2022-01-25] MEDS: HYDRALAZINE HCL 20 MG/ML VIAL IV PRN (15:24)
[2022-01-25] MEDS: LACTATED RINGER'S 1,000 ML INJ SCH (16:17)
[2022-01-26] VITALS (15 sets, daily range): BP systolic 119–172; BP diastolic 57–90
[2022-01-26] MEDS: HYDRALAZINE HCL 20 MG/ML VIAL IV PRN ×3 (00:15→20:16)
[2022-01-26] MEDS: LACTATED RINGER'S 1,000 ML INJ SCH ×2 (04:42→18:35)
[2022-01-26 04:49] LABS: ANION GAP 14.9 mmol/L (8-16); CALCIUM 8.4 mg/dL (8.4-10.2); CREATININE, SERUM 1.62 mg/dL (0.72-1.25)
[2022-01-26 04:51] LABS: POTASSIUM 2.9 mmol/L (3.5-5.1)
[2022-01-26] MEDS: LEVOTHYROXINE SODIUM 100 MCG/VIAL IV SCH (05:33)
[2022-01-26] MEDS: POTASSIUM CHLORIDE 20 MEQ TAB CR PO ONE ×2 (05:33→06:26)
[2022-01-26] MEDS ORDERED: POTASSIUM CHLORIDE 20MEQ/100ML 200 ML IV ONE ×2 (06:30→14:30)
[2022-01-26 07:26] LABS: BASOPHILS # (AUTO) 0.1 (0.0-0.1); BASOPHILS % 0.7 % (0.0-1.0); EOSINOPHILS # (AUTO) 0.2 (0.0-0.4); EOSINOPHILS % 1.8 % (0.0-6.0); HEMATOCRIT 23.9 % (38.2-49.6); HEMOGLOBIN 7.7 g/dL (14.0-18.0); LYMPHOCYTES # (AUTO) 0.6 (1.0-3.2); LYMPHOCYTES % 7.3 % (18.0-39.1); MEAN CORPUSCULAR HEMOGLOBIN 29.5 pg (28-32); MEAN CORPUSCULAR HGB CONC 32.2 g/dL (31-35); MEAN CORPUSCULAR VOLUME 91.6 fL (81-99); NEUTROPHILS # (AUTO) 6.7 (2.1-6.9); NEUTROPHILS % 77.6 % (38.7-80.0); PLATELET COUNT 442 x10e3/uL (140-360); RED BLOOD COUNT 2.61 x10e6/uL (4.3-5.7)
[2022-01-26] MEDS: SUCRALFATE 1 GM/10 ML SUSP NG SCH ×4 (07:30→20:16)
[2022-01-26] MEDS ORDERED: POTASSIUM CHLORIDE 20 MEQ TAB CR PO ONE (08:00)
[2022-01-26] MEDS: ASCORBIC ACID 500 MG TAB PO SCH ×2 (09:00→11:44)
[2022-01-26] MEDS: LIOTHYRONINE SODIUM 5 MCG TAB PO SCH ×2 (09:00→11:44)
[2022-01-26] MEDS: CARVEDILOL 12.5 MG TAB PO SCH ×2 (09:00→17:22)
[2022-01-26] MEDS: IRON SUCROSE 100 MG in SODIUM CHLORIDE 0.9% 100 ML IV SCH (09:42)
[2022-01-26] MEDS: FLUTICASONE PROPIONATE NASAL SPRAY NS SCH (09:42)
[2022-01-26] MEDS: BALSAM PERU/CASTOR OIL 60 GM OINT...G. TP SCH (09:43)
[2022-01-26] MEDS ORDERED: BACLOFEN 10 MG TAB PO SCH (11:15)
[2022-01-26 15:30] LABS: ANION GAP 14.6 mmol/L (8-16); CALCIUM 8.2 mg/dL (8.4-10.2); CREATININE, SERUM 1.55 mg/dL (0.72-1.25); POTASSIUM 3.6 mmol/L (3.5-5.1)
[2022-01-26] MEDS ORDERED: POTASSIUM CHLORIDE 20MEQ/15ML UDC NG ONE (16:45)
[2022-01-26] MEDS ORDERED: KCL 20 MEQ PACKET/ ORAL SOLN NG ONE (17:00)
[2022-01-27] VITALS (8 sets, daily range): BP systolic 123–153; BP diastolic 61–76
[2022-01-27] MEDS: HYDRALAZINE HCL 20 MG/ML VIAL IV PRN (02:06)
[2022-01-27] MEDS ORDERED: HYDROMORPHONE 1MG/1ML INJ IV PRN (02:45)
[2022-01-27] MEDS: LEVOTHYROXINE SODIUM 100 MCG/VIAL IV SCH (05:55)
[2022-01-27 06:13] LABS: BASOPHILS % 0.4 % (0.0-1.0); EOSINOPHILS # (AUTO) 0.2 (0.0-0.4); EOSINOPHILS % 2.7 % (0.0-6.0); HEMATOCRIT 25.6 % (38.2-49.6); HEMOGLOBIN 8.2 g/dL (14.0-18.0); LYMPHOCYTES # (AUTO) 0.6 (1.0-3.2); LYMPHOCYTES % 6.8 % (18.0-39.1); MEAN CORPUSCULAR HEMOGLOBIN 29.7 pg (28-32); MEAN CORPUSCULAR VOLUME 92.8 fL (81-99); MONOCYTES # (AUTO) 1.1 (0.2-0.8); MONOCYTES % 11.9 % (4.4-11.3); NEUTROPHILS # (AUTO) 6.9 (2.1-6.9); NEUTROPHILS % 77.5 % (38.7-80.0); PLATELET COUNT 443 x10e3/uL (140-360); RED BLOOD COUNT 2.76 x10e6/uL (4.3-5.7); RED CELL DISTRIBUTION WIDTH 14.2 % (11.7-14.4)
[2022-01-27 06:23] LABS: INR 0.98; PROTHROMBIN TIME 13.9 seconds (11.9-14.5)
[2022-01-27] MEDS: LACTATED RINGER'S 1,000 ML INJ SCH (06:39)
[2022-01-27] MEDS: SUCRALFATE 1 GM/10 ML SUSP NG SCH ×2 (07:49→13:14)
[2022-01-27] MEDS: LIOTHYRONINE SODIUM 5 MCG TAB PO SCH (09:58)
[2022-01-27] MEDS: FLUTICASONE PROPIONATE NASAL SPRAY NS SCH (09:59)
[2022-01-27] MEDS: BALSAM PERU/CASTOR OIL 60 GM OINT...G. TP SCH (09:59)
[2022-01-27] MEDS: CARVEDILOL 12.5 MG TAB PO SCH (09:59)
[2022-01-27] MEDS: ASCORBIC ACID 500 MG TAB PO SCH (09:59)
[2022-01-27] MEDS: IRON SUCROSE 100 MG in SODIUM CHLORIDE 0.9% 100 ML IV SCH (10:00)
== END 2022-01-27 15:09 | disposition hospice, home (50) | DRG 4 ==
LOC: ER 07:02 → ERHOLD 07:31 → MED/SURG3 14:38 → ICU 01-14 04:58 → MED/SURG 01-27 11:26
PROVIDERS: ADMIT Internal Medicine; ATTEND Internal Medicine
PROC: 0W993ZZ Drainage of Right Pleural Cavity, Percutaneous Approach (ICD-10-PCS; 2022-01-13)
PROC: 0B113F4 Bypass Trachea to Cutaneous with Tracheostomy Device, Percutaneous Approach (ICD-10-PCS; 2022-01-14)
PROC: 5A1945Z Respiratory Ventilation, 24-96 Consecutive Hours (ICD-10-PCS; 2022-01-14)
PROC: 30233L1 Transfusion of Nonautologous Fresh Plasma into Peripheral Vein, Percutaneous Approach (ICD-10-PCS; 2022-01-14)
PROC: 30233N1 Transfusion of Nonautologous Red Blood Cells into Peripheral Vein, Percutaneous Approach (ICD-10-PCS; 2022-01-14)
PROC: 30233K1 Transfusion of Nonautologous Frozen Plasma into Peripheral Vein, Percutaneous Approach (ICD-10-PCS; 2022-01-14)
PROC: 0DH63UZ Insertion of Feeding Device into Stomach, Percutaneous Approach (ICD-10-PCS; 2022-01-19)
PROC: 5A09357 Assistance with Respiratory Ventilation, Less than 24 Consecutive Hours, Continuous Positive Airway Pressure (ICD-10-PCS; 2022-01-19)
PROC: 0W993ZZ Drainage of Right Pleural Cavity, Percutaneous Approach (ICD-10-PCS; principal; 2022-01-24)
DX: A41.9 Sepsis, unspecified organism (principal); J18.9 Pneumonia, unspecified organism; J96.01 Acute respiratory failure with hypoxia; J69.0 Pneumonitis due to inhalation of food and vomit; G93.41 Metabolic encephalopathy; G92.8 Other toxic encephalopathy; J96.02 Acute respiratory failure with hypercapnia; R64 Cachexia; N17.9 Acute kidney failure, unspecified; Z68.1 Body mass index [BMI] 19.9 or less, adult; J90 Pleural effusion, not elsewhere classified; B37.49 Other urogenital candidiasis; K52.1 Toxic gastroenteritis and colitis; E44.0 Moderate protein-calorie malnutrition; K92.2 Gastrointestinal hemorrhage, unspecified; D62 Acute posthemorrhagic anemia; Z16.12 Extended spectrum beta lactamase (ESBL) resistance; K94.23 Gastrostomy malfunction; E87.20 Acidosis, unspecified; D63.8 Anemia in other chronic diseases classified elsewhere; I12.9 Hypertensive chronic kidney disease with stage 1 through stage 4 chronic kidney disease, or unspecified chronic kidney disease; R13.12 Dysphagia, oropharyngeal phase; E03.9 Hypothyroidism, unspecified; N18.30 Chronic kidney disease, stage 3 unspecified; Z85.89 Personal history of malignant neoplasm of other organs and systems; Z83.3 Family history of diabetes mellitus; Z82.49 Family history of ischemic heart disease and other diseases of the circulatory system; Z87.891 Personal history of nicotine dependence; Z72.89 Other problems related to lifestyle; Z85.810 Personal history of malignant neoplasm of tongue; Z98.890 Other specified postprocedural states; E87.6 Hypokalemia; I95.9 Hypotension, unspecified; T36.95XA Adverse effect of unspecified systemic antibiotic, initial encounter; Y92.234 Operating room of hospital as the place of occurrence of the external cause; B96.1 Klebsiella pneumoniae [K. pneumoniae] as the cause of diseases classified elsewhere; Z66 Do not resuscitate; Z20.822 Contact with and (suspected) exposure to COVID-19
CPT/HCPCS: 32555; 36415; 36600; 43246; 71045; 71260; 74230; 74470; 76770; 80048; 80053; 80307; 81001; 82270; 82550; 82553; 82607; 82728; 82746; 82805; 82948; 83540; 83605; 83615; 83690; 83735; 83880; 84100; 84132; 84155; 84157; 84436; 84443; 84466; 84478; 84479; 84484; 85014; 85018; 85025; 85045; 85379; 85610; 85730; 86850; 86900; 86920; 87040; 87070; 87086; 87186; 87205; 89051; 93005; 93306; 93971; 94003; 94799; 99251; 99284; J0360; J1450; J1756; J1940; J2001; J2185; J2370; J2543; J3370; J3480; J7030; J7050; J7070; J7121; P9016; P9017; Q9967